=== PATIENT | female | born 1960 | race Two or more races ===

== ENCOUNTER 2025-01-06 11:31 | Emergency (ER) | payer MEDICAID ==
[~2025-01-06] VITALS: Ht 152.4 cm; Wt 59.0 kg
[2025-01-06] MEDS ORDERED: ONDANSETRON 4 MG TAB.RAPDIS ONE (11:54)
[2025-01-06] MEDS ORDERED: ACETAMINOPHEN ES 500 MG TABLET ONE (11:54)
[2025-01-06] MEDS: ONDANSETRON 4 MG TAB.RAPDIS SL ONE (11:56)
[2025-01-06] MEDS: ACETAMINOPHEN ES 500 MG TABLET PO ONE (11:56)
[2025-01-06] MEDS ORDERED: KETO10TA2 PO (13:25)
[2025-01-06] MEDS ORDERED: ONDA4TAB5 PO (13:25)
[2025-01-06 13:36] VITALS: TEMP 98.2
[2025-01-06 13:46] VITALS: BP 177/85; O2SAT 100
== END 2025-01-06 13:47 | disposition home or self-care (01) ==
LOC: ER 11:39
DX: S09.90XA Unspecified injury of head, initial encounter (principal); R11.0 Nausea; W01.0XXA Fall on same level from slipping, tripping and stumbling without subsequent striking against object, initial encounter; Y93.89 Activity, other specified; Y92.89 Other specified places as the place of occurrence of the external cause; Y99.8 Other external cause status
CPT/HCPCS: 99284; 72125; 70450; Q0162